=== PATIENT | male | born 1945 | race Caucasian/White ===

== ENCOUNTER 2020-11-11 10:20 | Emergency (ER) | payer MEDICARE, BC ==
[~2020-11-11] VITALS: Ht 185.4 cm; Wt 81.2 kg
[~2020-11-11 10:20] MED LIST: ASCO-373 PO
--- NOTE | 2020-11-11 10:20 | NUR ---
PT BIB C/O LLQ ABDOMINAL PAIN STARTED LAST NIGHT. PT IS AAOX4, NOT IN RESPIRATORY DISTRESS, HOOKED TO DATA CENTER MANAGER, KEPT RESTED AND COMFORTABLE. WILL CONTINUE TO MONITOR.
--- NOTE | 2020-11-11 10:38 | NUR ---
TO ER BED 3 FOR MD PIERRE,UNABLE TO COLLECT URINE SPECIMEN AT THIS TIME
--- NOTE | 2020-11-11 10:48 | NUR ---
IV LINE ESTABLISHED BLOOD DRAWN AND SENT TO LAB.
[2020-11-11 10:50] LABS: BASOPHILS # (AUTO) 0.1 K/uL (0.0-0.2); BASOPHILS % (AUTO) 0.8 % (0.0-2.0); EOSINOPHILS % (AUTO) 0.3 % (0.0-6.0); HEMATOCRIT 50 % (39-51); HEMOGLOBIN 17.2 g/dL (13.5-17.5); LYMPHOCYTES # (AUTO) 0.5 K/uL (0.8-4.8); LYMPHOCYTES % (AUTO) 5.7 % (20.0-44.0); MEAN CORPUSCULAR HGB CONC 35 g/dl (31.0-36.0); MEAN CORPUSCULAR VOLUME 93 fL (80-96); MONOCYTES # (AUTO) 0.6 K/uL (0.1-1.30); MONOCYTES % (AUTO) 6.5 % (2.0-12.0); NEUTROPHILS # (AUTO) 7.5 K/uL (1.8-8.9); NEUTROPHILS % (AUTO) 86.7 % (43.0-81.0); PLATELET COUNT (AUTO) 116 K/uL (150-450); RED BLOOD CELL COUNT(AUTO) 5.33 MIL/uL (4.5-6.0); WHITE BLOOD COUNT (AUTO) 8.6 K/uL (4.3-11.0)
[2020-11-11] MEDS ORDERED: MORPHINE SULFATE INJ 4 MG/ML DISP.SYRIN ONE ×2 (10:50→12:06)
[2020-11-11] MEDS ORDERED: ONDANSETRON HCL/PF 4 MG/2 ML VIAL ONE (10:50)
[2020-11-11] MEDS ORDERED: IV NS 0.9% 1,000 ML IV ONE (11:00)
[2020-11-11] MEDS ORDERED: MORPHINE SULFATE INJ 2 MG/ML DISP.SYRIN IV ONE ×2 (11:00→12:00)
[2020-11-11] MEDS ORDERED: ONDANSETRON HCL/PF 4 MG/2 ML VIAL IV ONE (11:00)
[2020-11-11] MEDS ORDERED: METO25TA4 PO (11:42)
[2020-11-11] MEDS ORDERED: TAMS-12 PO (11:42)
[2020-11-11 11:43] LABS: BILIRUBIN,DIRECT 0.2 mg/dL (0.0-0.2); BILIRUBIN,TOTAL 1.2 mg/dL (0.2-1.0); CALCIUM, SERUM 9.4 mg/dL (8.5-10.1); CREATININE 1.3 mg/dL (0.6-1.3); POTASSIUM 4.2 mmol/L (3.5-5.1); TOTAL PROTEIN, SERUM 7.6 g/dL (6.4-8.2)
--- NOTE | 2020-11-11 11:51 | NUR ---
PT IS WHEELED TO CT SCAN VIA [facility].
[2020-11-11] MEDS ORDERED: IOHEXOL-300 100 ML VIAL IV ONE (11:54)
[2020-11-11] MEDS ORDERED: IV NS 0.9% 250 ML IV ONE (11:55)
[2020-11-11] MEDS ORDERED: CT SWABBABLE VALVE TRANS SET 1 EA INFUS.SET MC ONE (11:56)
[2020-11-11 13:21] LABS: BILIRUBIN,URINE Negative (NEGATIVE); COLOR,URINE YELLOW (YELLOW); LEUKOCYTE ESTERASE ,URINE Negative (NEGATIVE); NITRITE, URINE Negative (NEGATIVE); PROTEIN,URINE Negative (NEGATIVE); UGLUCOSE Negative (NEGATIVE); UROBILINOGEN,URINE 0.2 EU/dL (0.2)
[2020-11-11 13:22] LABS: BACTERIA,URINE Rare /HPF (None Seen); SQUAMOUS EPITHELIAL CELL,UR Rare /HPF (None Seen); WBC,URINE 0-2 /HPF (0-3)
[2020-11-11] MEDS ORDERED: KETOROLAC TROMETHAMINE 15 MG/ML VIAL ONE (13:30)
[2020-11-11] MEDS ORDERED: KETOROLAC TROMETHAMINE INJ 30 MG/ML VIAL IV ONE (13:30)
[2020-11-11] MEDS ORDERED: ONDA4TAB5 PO (13:34)
[2020-11-11] MEDS ORDERED: IBUP-1955 PO (13:34)
[2020-11-11] MEDS ORDERED: HYDR-4275 PO (13:34)
--- NOTE | 2020-11-11 13:57 | NUR ---
IV removed. Catheter intact and site benign. Pressure and 4x4 applied to site. No bleeding noted. Patient discharged to home in stable condition. Written and verbal after care instructions given. Patient verbalizes understanding of instruction.
[2020-11-11 13:58] VITALS: BP 134/82
== END 2020-11-11 13:59 | disposition home or self-care (01) ==
LOC: ER 10:20
DX: N13.2 Hydronephrosis with renal and ureteral calculous obstruction (principal); R11.2 Nausea with vomiting, unspecified; R10.32 Left lower quadrant pain; I10 Essential (primary) hypertension; Z98.890 Other specified postprocedural states; Z79.899 Other long term (current) drug therapy
CPT/HCPCS: 36415; 74177; 80048; 80076; 81001; 83690; 85025; 96361; 96374; 96375; 96376; 99285; J1885; J2270 ×2; J2405; J7030; J7050; Q9967